=== PATIENT | male | born 1960 | race Caucasian/White ===

== ENCOUNTER 2019-12-29 15:20 | Observation (INO) | payer BC ==
[2019-12-29 16:16] LABS: #Eosinphils 0.3 thou/uL (0.0-0.7); #Lymphocytes 1.4 thou/uL (1.20-3.40); #Monocytes 0.5 thou/uL (0.11-0.59); #Neutrophils 4.5 thou/uL (1.40-6.50); %Basophils 0.7 % (0.0-1.0); %Eosinophils 4.3 % (0.0-10.0); %Monocytes 6.8 % (0.0-10.0); %Neutrophils 67.2 % (42.0-75.0); Hemoglobin 16.2 g/dL (14.0-18.0); Mean Corpuscular Hemoglobin 30.3 pg (27.0-31.0); Mean Corpuscular Volume 89.1 fL (78.0-98.0); Mean Platelet Volume 11.7 fL (7.4-10.4); Platelet Count 105 thou/uL (130-400); RBC Distribution Width 12.8 % (11.5-14.5); Red Blood Cell (RBC) Count 5.34 mill/uL (4.70-6.10); White Blood Cell (WBC) Count 6.8 thou/uL (4.8-10.8)
[2019-12-29 16:32] LABS: ALT (SGPT) 26 U/L (8-55); AST (SGOT) 15 U/L (5-34); Albumin 4.3 g/dL (3.5-5.0); Alkaline Phosphatase 94 U/L (40-110); Anion Gap 14 mmol/L (10-20); BUN (Urea Nitrogen) 14 mg/dL (8.4-25.7); Bilirubin, Total 0.5 mg/dL (0.2-1.2); Calc. Creatinine Clearance 0 mL/min (70-130); Calcium 9.6 mg/dL (7.8-10.44); Carbon Dioxide 25 mmol/L (22-29); Chloride 102 mmol/L (98-107); Estimated GFR-MDRD 70; Globulin 2.8 g/dL (2.4-3.5); Glucose 354 mg/dL (70-105); Potassium 4.5 mmol/L (3.5-5.1); Protein, Total 7.1 g/dL (6.0-8.3); Sodium 136 mmol/L (136-145)
--- NOTE | 2019-12-29 16:41 | CT ---
CT head noncontrast HISTORY: Right facial weakness. FINDINGS: There is no evidence of acute intracranial hemorrhage or infarct. The ventricles appear nor mal in size, shape and position. There is no mass effect or shift of midline structures. Visualized paranasal. IMPRESSION: No acute intracranial abnormalities are demonstrated.
[2019-12-29] MEDS ORDERED: Aspirin 325 MG TAB ONE (17:36)
[2019-12-29 19:58] VITALS: BMI 32.5
[2019-12-29] MEDS ORDERED: Senokot S 8.6-50 MG TAB PO PRN (21:12)
[2019-12-29] MEDS ORDERED: HumaLOG 300 UNITS/3 ML VIAL SC PRN ×2 (21:12)
[2019-12-29] MEDS ORDERED: Ondansetron PF 4 MG/2 ML Vial IVP PRN (21:12)
[2019-12-29] MEDS ORDERED: Dextrose 5% in Water 1,000 ML IV PRN (21:12)
[2019-12-29] MEDS ORDERED: Acetaminophen 325 MG TAB PO PRN (21:12)
[2019-12-29] MEDS ORDERED: Guaifenesin DM 100-10/5 ML UDCUP PO PRN (21:12)
[2019-12-29] MEDS ORDERED: Ondansetron ODT 4 MG TAB PO PRN (21:12)
[2019-12-29] MEDS ORDERED: Acetaminophen 650 MG Suppository PR PRN (21:12)
[2019-12-29] MEDS ORDERED: Dextrose 50% Abboject 50 ML SYRINGE SLOW IVP PRN (21:12)
[2019-12-29] MEDS ORDERED: Atorvastatin Calcium 10 MG TAB PO SCH (21:15)
[2019-12-29] MEDS ORDERED: metFORMIN 500 MG TAB PO SCH (21:15)
--- NOTE | 2019-12-29 21:49 | HP ---
PRIMARY CARE PHYSICIAN: Dr. Eloise Vallejo. CHIEF COMPLAINT: Right-sided facial droop. HISTORY OF PRESENT ILLNESS: This is a 59-year-old white male with a history of diabetes mellitus, type 2, poorly controlled; obesity; and hypertension who presents with right-sided facial droop. Patient's reports that two days ago, she noticed his right eye tearing more than normal and then yesterday, patient noted that while he was driving his right eye was tearing a lot and then when his saw him, she noticed that the entire right side of his face was not moving normally and seemed to be drooping. Patient presented to the emergency room today. He was found to have a right-sided facial droop that partially spared the right forehead. No numbness or other neurologic signs. Did have a little bit of pain around his right ear. Due to the partial sparing of the forehead, there was concern about possible stroke. Patient had a CT scan that was negative in the emergency room. He is being put in observation to get an MRI in the morning. PAST MEDICAL HISTORY: 1. Diabetes mellitus, type 2, on multiple oral hypoglycemics. According to the patient, Dr. Vallejo has been trying to get him to switch over to insulin. 2. Hypertension. 3. Hyperlipidemia. PAST SURGICAL HISTORY: None. SOCIAL HISTORY: Patient reports no history of smoking since he was a teenager, but he has a history of dip use, has quit. Also, previously used marijuana, which he does not use anymore. He drinks socially about once a month, though he did have a little bit more over the weekend because he was in [facility]. FAMILY HISTORY: No known medical problems in the family. ALLERGIES: NO KNOWN DRUG ALLERGIES. CURRENT MEDICATIONS: 1. Januvia, unknown dose daily. 2. Metformin 1000 mg twice a day. 3. Lisinopril, unknown dose daily. 4. Lipitor 10 mg daily. REVIEW OF SYSTEMS: CONSTITUTIONAL: No fevers. No chills. EYES: No double vision or blurred vision. He does have the tearing in the right eye per the HPI. No eye pain. ENT: No congestion, drainage, or sore throat. CARDIOVASCULAR: No chest pain. No palpitations or racing heart. PULMONARY: No coughing, wheezing, or shortness of breath. GASTROINTESTINAL: No abdominal pain. No nausea or vomiting. No diarrhea or constipation. GENITOURINARY: No dysuria or hematuria. MUSCULOSKELETAL: He has some minor muscle aches and joint pains when he does activity, but nothing unusual. SKIN: No rashes or lesions noted. NEUROLOGIC: See HPI. No other neurologic symptoms. PHYSICAL EXAMINATION: VITAL SIGNS: Blood pressure 145/95, pulse 91, respirations 18, and O2 saturation 94% on room air. GENERAL: This is a well-developed obese white male, in no acute distress. HEENT: Pupils are equal, round, and reactive to light. Oropharynx clear without lesions, erythema, or exudate. NECK: Supple. No lymphadenopathy. No thyroid nodules or enlargement. No JVD. HEART: Regular rate and rhythm. No murmurs, rubs, or gallops. LUNGS: Clear to auscultation bilaterally. No wheezes, crackles, or rhonchi. ABDOMEN: Soft, obese, nontender to palpation. Normoactive bowel sounds. No hepatosplenomegaly or other masses. EXTREMITIES: No clubbing, cyanosis, or edema. SKIN: No rashes or lesions noted. NEUROLOGIC: Patient has a complete facial paralysis on the right side of the lower and mid face. The right forehead has decreased motion, but does have some movement. He has intact sensation in all these places. He reports some pain in front of the right ear. There is no tenderness to palpation there. No lesions noted. He does have incomplete closing of his right eye, but has normal extraocular movements. He has intact sensation and strength in all extremities. Otherwise, no other abnormalities on his neurologic exam. PSYCHIATRIC: Alert and orient x3. Normal mood and affect. LABORATORY DATA: CBC within normal limits, except for a low platelet count of 105. Complete metabolic panel is notable only for glucose of 354. Troponin was negative. CT of the brain done in the emergency room shows no acute intracranial abnormalities. ASSESSMENT: 1. Right facial paralysis with partial sparing of the forehead. 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 If the MRI of the brain is normal, then he can be discharged home. Can consider some steroids to improve symptoms, however, this may worsen his diabetes, may also want to discuss switching him to insulin at the time of discharge as well as he seems to be starting to become a little more open to this possibility and Dr. Vallejo has been trying to get him to switch as an outpatient. 2. Diabetes mellitus, type 2. We will put patient on insulin sliding scale and resume his home medications. 3. Hypertension. Resume patient's home antihypertensives after we have ruled out a stroke. For now, we will allow permissive hypertension. 4. Hyperlipidemia. Resume patient's statin. 5. Deep venous thrombosis prophylaxis. We will encourage ambulation. 6. Code status. I did discuss with the patient. He is a full code. Should he be incapacitated, his would be his medical decision maker. Job ID: [id number]
[2019-12-30 05:28] LABS: Anion Gap 11 mmol/L (10-20); BUN (Urea Nitrogen) 15 mg/dL (8.4-25.7); Calc. Creatinine Clearance 116 mL/min (70-130); Calcium 8.9 mg/dL (7.8-10.44); Carbon Dioxide 27 mmol/L (22-29); Chloride 102 mmol/L (98-107); Estimated GFR-MDRD 80; Glucose 192 mg/dL (70-105); Potassium 4.4 mmol/L (3.5-5.1); Sodium 136 mmol/L (136-145)
[2019-12-30 06:49] LABS: #Basophils 0.1 thou/uL (0.0-0.2); #Eosinphils 0.3 thou/uL (0.0-0.7); #Lymphocytes 2.2 thou/uL (1.20-3.40); #Monocytes 0.5 thou/uL (0.11-0.59); #Neutrophils 4.3 thou/uL (1.40-6.50); %Basophils 0.8 % (0.0-1.0); %Eosinophils 4.6 % (0.0-10.0); %Lymphocytes 29.7 % (21.0-51.0); %Monocytes 7.2 % (0.0-10.0); %Neutrophils 57.7 % (42.0-75.0); Hemoglobin 15.7 g/dL (14.0-18.0); Mean Corpuscular HGB CONC 34.3 g/dL (32.0-36.0); Mean Corpuscular Hemoglobin 30.5 pg (27.0-31.0); Platelet Count 102 thou/uL (130-400); RBC Distribution Width 12.8 % (11.5-14.5); Red Blood Cell (RBC) Count 5.16 mill/uL (4.70-6.10); White Blood Cell (WBC) Count 7.4 thou/uL (4.8-10.8)
[2019-12-30 07:47] VITALS: BP 136/69; TEMP 97.4
[2019-12-30] MEDS ORDERED: metFORMIN 500 MG TAB PO SCH (08:00)
[2019-12-30] MEDS ORDERED: Aspirin 81 mg Enteric Coated Tablet PO SCH (09:00)
[2019-12-30] MEDS ORDERED: Famotidine 20 MG TAB PO SCH (09:00)
--- NOTE | 2019-12-30 09:15 | MRI ---
EXAM: MRI Brain WO Con PROVIDED CLINICAL HISTORY: Right facial droop COMPARISON: CT head on 12/29/2019 FINDINGS: There are scattered punctate and patchy areas of increased FLAIR and T2-weighted signal intensity see n within the periventricular and subcortical white matter which are nonspecific but likely reflective of chronic small vessel ischemic changes. There is no evidence of an acute infarction. Mil d cerebral volume loss is present not unexpected for the patient's age. The ventricular system is normal in size, shape, and position. Septum pellucidum and third ventricle are in the midline. Appropriate flow voids are demonstrated in the large intracranial vessels at the base of the brain. Minimal mucosal thickening is seen in a few ethmoidal air cells bilaterally. Orbits and remainder of the skull base have a normal MRI appearance. IMPRESSION: 1. No acute intracranial abnormalities demonstrated. 2. Chronic small vessel ischemic changes.
[2019-12-30] MEDS ORDERED: predniSONE 20 MG TAB PO SCH (10:15)
--- NOTE | 2019-12-30 10:41 | DIS ---
DATE OF ADMISSION: 12/29/2019 DATE OF DISCHARGE: 12/30/2019 PRIMARY CARE PROVIDER: Dr. Eloise Vallejo. DISPOSITION: Discharged home. FINAL DIAGNOSES: Kam palsy, diabetes mellitus type 2, hypertension, dyslipidemia. DISCHARGE MEDICATIONS: New; 1. Prednisone 40 mg p.o. daily x5. 2. Lipitor 40 mg a day. 3. Ertaczo 60 mg topical a day. 4. Januvia 100 mg a day. 5. Metformin 1000 mg p.o. b.i.d. 6. Glipizide 10 mg p.o. b.i.d. ALLERGIES: NO KNOWN DRUG ALLERGIES. PENDING AT TIME OF DISCHARGE: Nothing. CODE STATUS: Full. DIET: Diabetic. HOSPITAL COURSE: The patient admitted to the Hospitalist Service through [facility] with a right facial droop. He was noted to have partial sparing of his forehead. He was placed in the hospital for rule out stroke with an MRI. His MRI is unremarkable for CVA. He is being given a short five-day course of oral steroids. Laboratory, CBC normal x2 except for mild thrombocytopenia of 105 and 102. Chemistries; his blood sugar was elevated initially 354, then less than 200. Electrolytes were balanced, BUN and creatinine were normal. Liver function tests normal. He is being discharged for followup with Dr. Vallejo in 3 days. It was also noted during his hospital stay that he had frequent PVCs, occasionally in a bigeminal rhythm. He has no dizziness, no fainting. Blood pressure, etc were normal. If the primary care provider considers this is important, further workup could be done. Job ID: [id number]
[2019-12-30] MEDS ORDERED: Atorvastatin Calcium 10 MG TAB PO SCH (21:00)
== END 2019-12-30 10:42 | disposition home or self-care (01) ==
LOC: ERS 15:20 → 2SE 19:11
PROVIDERS: ADMIT Emergency Medicine; ATTEND Emergency Medicine
DX: G51.0 Bell's palsy (principal); E11.9 Type 2 diabetes mellitus without complications; I10 Essential (primary) hypertension; E78.5 Hyperlipidemia, unspecified; I49.3 Ventricular premature depolarization; F12.11 Cannabis abuse, in remission; E66.9 Obesity, unspecified; Z68.32 Body mass index [BMI] 32.0-32.9, adult; Z87.891 Personal history of nicotine dependence; Z79.84 Long term (current) use of oral hypoglycemic drugs; Z79.899 Other long term (current) drug therapy
CPT/HCPCS: 36415; 36416; 70450; 70551; 80048; 80053; 84484; 85025; 93005; G0378; J7512